=== PATIENT | female | born 1970 | race Caucasian/White ===

== ENCOUNTER 2024-11-29 12:46 | Outpatient (CLI) | payer OTHER, SELFPAY ==
--- NOTE | 2024-11-29 13:00 | CRLHL7_ITS ---
For Patients: As a result of the Century Cures Act, medical imaging exams and procedure reports are released immediately into your electronic medical record. You may view this report before your referring provider. If you have questions, please contact your health care provider. INDICATION: BILATERAL SCREENING MAMMOGRAM, ASYMPTOMATIC 54 Y/O FEMALE COMPARISON: 06/16/2023, 06/08/2022, 06/04/2021 TECHNIQUE: Digital mammogram in CC and MLO projections including computer-aided detection (CAD) and tomosynthesis. BREAST COMPOSITION: There are scattered areas of fibroglandular density. FINDINGS: No suspicious findings. ASSESSMENT: BI-RADS 1 Negative RECOMMENDATION: Annual screening mammogram. A lay language report of this examination will be provided to the patient. Dictated by: Elba Mahmood MD @ 12/02/2024 21:26:30 (Electronically Signed)
== END 2024-11-29 12:47 | disposition home or self-care (01) ==
LOC: MAMMO 12:50
PROVIDERS: Visit Provider Registered Nurse
DX: Z12.31 Encounter for screening mammogram for malignant neoplasm of breast (principal)
CPT/HCPCS: 77063; 77067; 87624; 88175

== ENCOUNTER 2025-04-17 17:16 | Outpatient (CLI) | payer OTHER, SELFPAY ==
--- NOTE | 2025-04-17 17:30 | CRLHL7_ITS ---
For Patients: As a result of the Century Cures Act, medical imaging exams and procedure reports are released immediately into your electronic medical record. You may view this report before your referring provider. If you have questions, please contact your health care provider. INDICATION: postmenopausal bleeding COMPARISON: 06/10/2021 TECHNIQUE: 2D morton-scale and color Doppler images were acquired of the pelvis using a transabdominal and transvaginal approach. Transvaginal imaging performed to better visualize the endometrial stripe and ovaries. FINDINGS: Sonographic images demonstrate a normal size and smooth outer contour of the uterus. Uterus measures 6.3 cm in length by 3.1 cm in AP diameter by 3.9 cm in transverse dimension. Heterogeneous structure within the endometrial canal measures 9 x 10 x 9 millimeters. The endometrial cavity itself measures up to 1.2 cm. The right ovary measures 2.3 x 1.4 x 1.4 cm in size and the left ovary measures 2.2 x 2.2 x 1.9 cm. The ovaries demonstrate normal arterial and venous blood flow on color Doppler analysis. There are no suspicious fluid collections within the cul-de-sac. Simple right adnexal cyst measures 1.4 x 1.5 x 1.2 cm. IMPRESSION: Abnormal endometrium with submucosal fibroid or polyp measuring 1 cm. Dictated by Serafin Gordon MD @ 04/18/2025 6:46:35 AM (Electronically Signed)
== END 2025-04-17 17:17 | disposition home or self-care (01) ==
LOC: US 17:16
PROVIDERS: Visit Provider Obstetrics & Gynecology
DX: N95.0 Postmenopausal bleeding (principal); R93.89 Abnormal findings on diagnostic imaging of other specified body structures
CPT/HCPCS: 76830; 76856

== ENCOUNTER 2025-04-23 08:17 | Outpatient (CLI) | payer OTHER, SELFPAY | END 2025-04-23 08:18 | disposition home or self-care (01) | LOC: FRMREF 08:18 | PROVIDERS: PCP Family Medicine; Visit Provider Family Medicine | DX: Z00.00 Encounter for general adult medical examination without abnormal findings (principal); Z13.0 Encounter for screening for diseases of the blood and blood-forming organs and certain disorders involving the immune mechanism | CPT/HCPCS: 80053; 83540; 83550 ==

== ENCOUNTER 2025-04-25 10:11 | Day surgery (SDC) | payer OTHER, SELFPAY ==
[2025-04-25 10:49] VITALS: BMI 24.9
[2025-04-25 11:03] LABS: Ur HCG Qualitative* Negative (Negative)
[2025-04-25 11:14] VITALS: BP 132/91; PULSE 64; RESP 16; TEMP 36.4; O2SAT 97
[2025-04-25] MEDS: LACTATED RINGERS 1000 ML 1,000 ML 100 ML IV (11:17)
[2025-04-25] MEDS: SODIUM CHLORIDE 0.9 % (FLUSH) 10 ML SYRINGE IVF (11:18)
--- NOTE | 2025-04-25 12:00 | W.PM.H&PU ---
History & Physical Update History & Physical Update H&P Reviewed and patient assessed: No changes noted
[2025-04-25] MEDS: LIDOCAINE 1% MDV 20 ML INJECTION (12:17)
--- NOTE | 2025-04-25 12:31 | W.PM.GYNPROC ---
Procedure Note Date of procedure: 04/25/25 Will [facility] bill your pro fee for this procedure?: Yes Pre-op diagnosis: Postmenopausal bleeding Suspected endometrial polyp on ultrasound Post-op diagnosis: Postmenopausal bleeding Endometrial and endocervical polyps Procedure: Hysteroscopy with endometrial and endocervical polypectomy, dilation and curettage Anesthesia: MAC and local Complications: None Surgeon: Joaquina Lima MD Estimated blood loss (mL): 5 IV fluids (mL): 900 Urine Output (mL): 100 Pathology: specimen obtained, sent to pathology (endometrial and endocervical curettings) Condition: stable Disposition: same day Findings: Saline deficit 85 mL 1. Upon pelvic exam under anesthesia, the cervix and vagina were normal in appearance. Uterus was mobile and anteverted, of normal size and texture. There were no palpable adnexal masses. 2. Upon hysteroscopy, survey of the endocervical canal revealed small subcentimeter polyps in the posterior endocervix near the ectocervical os. There was 1 endometrial polyp in the posterior fundus that was approximately 1.5 cm in greatest dimension. There is another sessile suspected polyp in the posterior fundus measuring about 1 cm in greatest dimension. Otherwise, the endometrium appeared thin throughout. The endometrial cavity was normal in contour, and bilateral tubal ostia were normal in appearance. Procedure Description: Procedure in detail: Patient was taken to the operating room with IV running. She was positioned in dorsal lithotomy position with her legs fully supported in Yellofin stirrups. Monitored anesthesia care was administered. She was prepped and draped in the usual sterile fashion. Exam under anesthesia was performed for the above-noted findings. Speculum was inserted. Cervix visualized and grasped along the anterior lip with a single-tooth tenaculum. Cervix was serially dilated to accommodate the TRUCLEAR hysteroscope. This was assembled with saline inflow and outflow in place. The line was flushed of bubbles. The hysteroscope was advanced through the cervix into the endometrial cavity for the above noted findings. The tissue morcellator was then inserted through the operating channel. Window lock was performed. Under direct visualization, the above described endometrial polyps were removed under direct visualization. The endometrium was otherwise quite thin, and was sampled circumferentially with the tissue morcellator. Finally, the small polyps an and cervix were removed with the tissue morcellator. The hysteroscope and morcellator were then removed from the cervix. Tenaculum was removed from the anterior lip of cervix. Hemostasis was noted. Patient tolerated procedure well. She was taken to recovery area in stable condition. Postoperative debrief was verbalized with OR staff, including a verification of pathology specimens to be sent as described above.
--- NOTE | 2025-04-25 12:32 | SUR.OPER ---
deficit of 85
[2025-04-25 12:38] VITALS: BP 136/79; PULSE 65; RESP 16; TEMP 36.8; O2SAT 96
[2025-04-25 12:45] VITALS: BP 137/75; PULSE 69; RESP 16; O2SAT 96
--- NOTE | 2025-04-25 13:01 | P.ANES_ITS ---
Anesthesia Charges Start Date/Time Anesthesia Start Date: 04/25/25 Anesthesia Start Time: 11:51 Stop Date/Time Anesthesia Stop Date: 04/25/25 Anesthesia Stop Time: 12:41 Coding CPT Codes CPT Codes: ANESTH HYSTEROSCOPE/GRAPH - 89730 ([id number]) QK - RN CALL CENTER 2-4 CNCRNT ANES PROC, QX - DRAWING INSTRUCTOR SVC W/ MD MED DIRECTION, P1 - NORMAL HEALTHY PATIENT
--- NOTE | 2025-04-25 13:01 | W.ANESCHARGE ---
Anesthesia Charges Start Date/Time Anesthesia Start Date: 04/25/25 Anesthesia Start Time: 11:51 Stop Date/Time Anesthesia Stop Date: 04/25/25 Anesthesia Stop Time: 12:41 Coding CPT Codes CPT Codes: ANESTH HYSTEROSCOPE/GRAPH - 76305 ([id number]) QK - THEATRICAL RIGGER 2-4 CNCRNT ANES PROC, QX - GROUND WATER PUMP INSTALLER SVC W/ MD MED DIRECTION, P1 - NORMAL HEALTHY PATIENT
[2025-04-25 13:06] VITALS: BP 158/85; PULSE 49; RESP 16; O2SAT 98
--- NOTE | 2025-04-25 13:11 | SUR.PHASEII ---
pt states she needs to void, pt sleepy but ambulated to bathroom with and commercial loan underwriter. Tolerated without difficulty.
[2025-04-25 13:23] VITALS: BP 143/71; PULSE 50; RESP 16; O2SAT 98
--- NOTE | 2025-04-25 13:25 | SUR.PHASEII ---
pt states unable to void.
[2025-04-25] MEDS: ACETAMINOPHEN 500 MG TABLET 1000 MG PO (13:37)
--- NOTE | 2025-04-25 13:52 | SUR.PHASEII ---
Patient ambulatory to restroom with stand by assist. Spouse with patient in bathroom. Pt voided. Returned to room ambulatory with stand by assist. Changing clothes with spouse at the bedside.
[2025-04-25 14:05] VITALS: BP 154/72; PULSE 62; RESP 16; O2SAT 98
--- NOTE | 2025-04-25 15:00 | P.ANES_ITS ---
Anesthesia Charges Start Date/Time Anesthesia Start Date: 04/25/25 Anesthesia Start Time: 11:51 Stop Date/Time Anesthesia Stop Date: 04/25/25 Anesthesia Stop Time: 12:41 Coding CPT Codes CPT Codes: ANESTH HYSTEROSCOPE/GRAPH - 78916 ([id number]) P1 - NORMAL HEALTHY PATIENT, QK - COMMUNITY HEALTH CONSULTANT 2-4 CNCRNT ANES PROC, QX - COMMERCIAL PRODUCER SVC W/ MED DIRECTION
--- NOTE | 2025-04-25 15:00 | W.ANESCHARGE ---
Anesthesia Charges Start Date/Time Anesthesia Start Date: 04/25/25 Anesthesia Start Time: 11:51 Stop Date/Time Anesthesia Stop Date: 04/25/25 Anesthesia Stop Time: 12:41 Coding CPT Codes CPT Codes: ANESTH HYSTEROSCOPE/GRAPH - 93742 ([id number]) P1 - NORMAL HEALTHY PATIENT, QK - LIFESTYLE CONSULTANT 2-4 CNCRNT ANES PROC, QX - PCMH SPECIALIST SVC W/ MED DIRECTION
== END 2025-04-25 14:15 | disposition home or self-care (01) ==
PROVIDERS: PCP Family Medicine; Visit Provider Obstetrics & Gynecology
PROC: 0UDB8ZZ Extraction of Endometrium, Via Natural or Artificial Opening Endoscopic (ICD-10-PCS; CPT 58558; principal; 2025-04-25 12:00)
DX: N95.0 Postmenopausal bleeding (principal); N84.0 Polyp of corpus uteri; N84.1 Polyp of cervix uteri
CPT/HCPCS: 58558; 00952; 36415; 81025; 86850; 86900; 86901; J2003; A9270; C1782; J1885; J2250; J2405; J2704; J3490; J7120